=== PATIENT | female | born 1965 | race Caucasian/White ===

== ENCOUNTER 2021-02-02 10:44 | Outpatient (CLI) | payer OTHER, SELFPAY | END 2021-02-02 10:45 | disposition home or self-care (01) | LOC: ANHAUDIO 10:46 | DX: H74.20 Discontinuity and dislocation of ear ossicles, unspecified ear (principal); H72.91 Unspecified perforation of tympanic membrane, right ear; H90.6 Mixed conductive and sensorineural hearing loss, bilateral | CPT/HCPCS: 92557; 92567 ==

== ENCOUNTER 2021-08-11 08:00 | Outpatient (RCR) | payer OTHER, SELFPAY | END 2021-08-11 23:59 | disposition home or self-care (01) | LOC: ANHAUDIO 08:00 | DX: Z46.1 Encounter for fitting and adjustment of hearing aid (principal) | CPT/HCPCS: 99199 ==

== ENCOUNTER 2021-08-11 08:25 | Outpatient (CLI) | payer OTHER, SELFPAY | END 2021-08-11 08:26 | disposition home or self-care (01) | LOC: ANHAUDIO 08:28 | DX: H91.90 Unspecified hearing loss, unspecified ear (principal) | CPT/HCPCS: 92557; 92567 ==

== ENCOUNTER 2021-11-09 13:00 | Outpatient (RCR) | payer OTHER, SELFPAY | END 2021-11-09 23:59 | disposition home or self-care (01) | LOC: ANHAUDIO 13:00 | DX: Z46.1 Encounter for fitting and adjustment of hearing aid (principal) | CPT/HCPCS: 99199; V5160; V5261; V5264 ==